=== PATIENT | male | born 1945 | race Caucasian/White ===

== ENCOUNTER 2017-07-07 11:47 | Emergency (ER) | payer OTHER ==
[2017-07-07 12:05] VITALS: BP 145/75; PULSE 62; TEMP 98.1; BMI 29.0
[2017-07-07] MEDS ORDERED: FLUORESCEIN NA 1 EA STRIP ONE (13:15)
--- NOTE | 2017-07-07 13:29 | PDOC ---
History of Present Illness - General Chief Complaint: Eye Problem Stated Complaint: EYE PROBLEM Time Seen by Provider: 07/07/17 13:11 History Source: Patient Exam Limitations: No Limitations - History of Present Illness Initial Comments: 07/07/17 13:29 Patient came with complaints of right eye pain for 2 days. States feels there is a foreign body in his eye and that every time he moves his eye feels the scratch. Denies purulent drainage, denies fever, but is tearing. Recipient of kidney Transplant 2 years ago and taking multiple immunosuppressive drugs Timing/Duration: unsure Severity: moderate Past History - Travel Traveled outside of the country in the last 30 days: No Close contact w/someone who was outside of country & ill: No - Past Medical History Allergies/Adverse Reactions: Allergies Allergy/AdvReac Type Severity Reaction Status Date / Time No Known Allergies Allergy Verified 07/07/17 12:02 COPD: No Dialysis: Yes (kidney 2yrsago) - Suicide/Smoking/Psychosocial Hx Smoking History: Never smoked Review of Systems - Review of Systems Able to Perform ROS?: Yes Is the patient limited E[place] proficient: Yes Constitutional: Yes: See HPI. No: Symptoms Reported, Fever, Malaise HEENTM: Yes: Symptoms Reported, See HPI, Eye Pain, Tearing. No: Recent change in vision Respiratory: No: Symptoms reported All Other Systems: Reviewed and Negative *Physical Exam - Vital Signs Last Vital Signs Temp Pulse Resp BP Pulse Ox 98.1 F 62 19 145/75 97 07/07/17 12:02 07/07/17 12:02 07/07/17 12:02 07/07/17 12:02 07/07/17 12:02 - Physical Exam General Appearance: Yes: Nourished, Appropriately Dressed, Apparent Distress, Mild Distress HEENT: positive: Normal ENT Inspection, TMs Normal, Pharynx Normal, Other (2 mm x 2 mm cornea serration noted with halo midpoint right pupil) Neck: positive: Supple. negative: Tender, Lymphadenopathy (R), Lymphadenopathy (L) Respiratory/Chest: positive: Lungs Clear Extremity: positive: Normal Capillary Refill, Normal Inspection, Normal Range of Motion Integumentary: positive: Normal Color, Pale Neurologic: positive: fire protection specialist II-XII NML intact, Fully Oriented, Alert, Normal Mood/ Affect, Normal Response, Motor Strength 5/5 Medical Decision Making - Medical Decision Making 07/07/17 13:[address] Borjas's office, ophthalmology on-call who will receive patient to her office now for further evaluation and treatment. Patient directed to her office and will go now *DC/Admit/Observation/Transfer Diagnosis at time of Disposition: Corneal ulcer Qualifiers: Laterality: left Qualified Code(s): H16.002 - Unspecified corneal ulcer, left eye - Discharge Dispostion Disposition: HOME Condition at time of disposition: Stable Admit: No - Referrals Referrals: Lior Borjas [Staff Physician] - - Patient Instructions Printed Discharge Instructions: DI for Corneal Ulcer Additional Instructions: Go immediately to Dr. Borjas's office - Post Discharge Activity
== END 2017-07-07 13:47 | disposition home or self-care (01) ==
LOC: JERFT 11:47
DX: H16.002 Unspecified corneal ulcer, left eye (principal)
CPT/HCPCS: 99281-25